=== PATIENT | female | born 1980 | race Caucasian/White ===

== ENCOUNTER 2016-08-26 09:55 | Emergency (ER) | payer MEDICAID ==
[~2016-08-26] VITALS: Ht 157.5 cm; Wt 60.0 kg
[2016-08-26 10:08] VITALS: BP 123/89
[2016-08-26] MEDS ORDERED: KETOROLAC 60MG/2ML VIAL IM ONE (15:45)
[2016-08-26 17:32] LABS: HCG SCREEN NEGATIVE
== END 2016-08-26 19:51 | disposition home or self-care (01) ==
LOC: ER 13:20
DX: M54.5 Low back pain (principal); R21 Rash and other nonspecific skin eruption; F17.200 Nicotine dependence, unspecified, uncomplicated; Z88.0 Allergy status to penicillin
CPT/HCPCS: 72100; 84703; 99284; J1885

== ENCOUNTER 2016-08-26 21:10 | Emergency (ER) | payer MEDICAID ==
[~2016-08-26] VITALS: Ht 154.9 cm; Wt 66.0 kg
[2016-08-26 22:50] VITALS: BP 109/62
== END 2016-08-27 01:37 | disposition left against medical advice (07) ==
LOC: ER 21:10
DX: R52 Pain, unspecified (principal); Z53.21 Procedure and treatment not carried out due to patient leaving prior to being seen by health care provider